=== PATIENT | male | born 1960 | race Caucasian/White ===

== ENCOUNTER 2016-09-28 12:26 | Day surgery (SDC) | payer OTHER ==
[~2016-09-28] VITALS: Ht 167.6 cm; Wt 93.2 kg
[2016-09-28 13:56] VITALS: Ht 167.6 cm; Wt 93.2 kg
[2016-09-28 14:02] VITALS: BP 136/75; PULSE 77; RESP 12
[2016-09-28] MEDS ORDERED: [UNRECOGNIZED DRUG - OTHER] PO (14:02)
[2016-09-28] MEDS ORDERED: PROPOFOL 20 ML ONE (14:28)
[2016-09-28] MEDS ORDERED: LIDOCAINE 2% (SDV) 5 ML INJ ONE (14:28)
[2016-09-28] MEDS ORDERED: FENTAnyl 50 MCG/ML VIAL ONE (14:28)
[2016-09-28 15:30] VITALS: BP 153/92; PULSE 70; RESP 12
--- NOTE | 2016-09-28 16:18 | GILP ---
DATE OF PROCEDURE: 09/28/2016 NAME OF PROCEDURE: Colonoscopy, biopsy and polypectomy. SURGEON: Tricia Reilly MD PREOPERATIVE DIAGNOSIS: Screening colonoscopy. POSTOPERATIVE DIAGNOSES: 1. Colonoscopy all the way to the cecum. 2. Right colon polyp was removed using the biopsy forceps. 3. Transverse colon polyp was removed using the snare and electrocautery. 4. One of the sigmoid colon polyps was removed using the snare and electrocautery and another one w ith the biopsy forceps. 5. Internal hemorrhoids. INDICATION FOR THE PROCEDURE: Mr. Porter Womack is a 56-year-old male patient who was sched uled for screening colonoscopy. The procedure and possible complications were well explained to the patient, he understood and conse nted to the procedure. DESCRIPTION OF PROCEDURE: Under the influence of anesthesia, the colonoscope was carefully introduc ed in the rectum and under direct vision, it was advanced all the way to the cecum. FINDINGS: The patient had angiodysplastic lesions in the cecum and right colon. He had a right col on polyp and it was removed using the biopsy forceps. He had a transverse colon polyp and it was re moved using the snare and electrocautery. The patient had 2 polyps in the sigmoid colon and one of them was removed with the snare and electrocautery and another one with the biopsy forceps. He had internal hemorrhoids. He tolerated the procedure very well and there was no complication from the procedure. At the end o f the procedure, he was awake with stable vital signs and he was discharged home to the care of his family. IMPRESSION: 1. Colonoscopy all the way to the cecum. 2. Angiodysplastic lesions in the cecum and the right colon. 3. Right colon polyp was removed using the biopsy forceps. 4. Transverse colon polyp was removed using the snare and electrocautery. 5. One sigmoid colon polyp was removed using the snare and electrocautery and another one with the biopsy forceps. 6. Internal hemorrhoids. PLAN: 1. Await histopathology report. 2. Because of multiple colon polyps the patient had, the next screening colonoscopy in 3 years. Dictated By: TRICIA REILLY MD GD/NTS Conf#: [id number] DID#: [id number] CC: TRICIA REILLY MD;*End*
== END 2016-09-28 18:25 | disposition home or self-care (01) ==
LOC: GIL 12:26
PROVIDERS: ATTEND Internal Medicine Gastroenterology
DX: Z12.11 Encounter for screening for malignant neoplasm of colon (principal); D12.3 Benign neoplasm of transverse colon; D12.5 Benign neoplasm of sigmoid colon; K64.8 Other hemorrhoids
CPT/HCPCS: 45380; 45385; 88305; J3010; Z7610